=== PATIENT | female | born 1965 | race Hispanic/Latino ===

== ENCOUNTER 2020-05-16 18:35 | Emergency (ER) | payer MEDICAID, SELFPAY ==
--- NOTE | ~2020-05-16 | CT_ITS ---
EXAMINATION: CT cervical spine wo con DATE: 05/16/2020 21:40 INDICATION: Neck pain after fall TECHNIQUE: Computed tomography (CT) of the cervical spine was performed without intravenous contrast. The dose-length product was 433 mGy-cm. Automated exposure control and iterative reconstruction tech [employer] were employed. COMPARISON: None FINDINGS: Normal cervical alignment. Vertebral body and disc heights are preserved. No acute fracture , subluxation or dislocation. Odontoid process within normal limits. Lung apices are unremarkable. Cr aniovertebral junction is normal. No paraspinal soft tissue abnormality. IMPRESSION: 1. No acute abnormality of the cervical spine. Reviewed, dictated and finalized at location A.
--- NOTE | ~2020-05-16 | CT_ITS ---
EXAMINATION: CT BRAIN W/O DATE: 05/16/2020 21:40 INDICATION: Head injury. Loss of consciousness. TECHNIQUE: Computed tomography (CT) of the head was performed without intravenous contrast. The dose- length product was 605.33 mGy-cm. The mA was adjusted according to patient size. Iterative reconstruc tion technique was employed. COMPARISON: No prior studies for comparison. FINDINGS: Normal brain parenchymal volume for age. Normal casarez-white differentiation. No acute intrac ranial hemorrhage, infarction, mass or mass effect. No ventriculomegaly or midline shift. Midline sagittal images demonstrate a normal corpus callosum, c raniovertebral junction and sella turcica. Basilar cisterns are patent. There is right parietal scalp swelling. Paranasal sinuses and mastoids are pneumatized. No depressed skull fractures. IMPRESSION: 1. No acute intracranial abnormality. Reviewed, dictated and finalized at location A.
--- NOTE | ~2020-05-16 | XR_ITS ---
XR hip BI 2V w AP pelvis 05/16/2020 21:46 INDICATION: Hip pain after fall PROCEDURE: AP pelvis and 2 views each hip COMPARISON: No prior studies for comparison. FINDINGS: Fracture, dislocation or subluxation is not identified. Pelvic rings are intact. The soft t issues appear within normal limits. No foreign bodies are identified. There is a right-sided pseudoa rticulation at L5-S1. IMPRESSION: 1: NO ACUTE BONE OR JOINT ABNORMALITY IDENTIFIED. Reviewed, dictated and finalized at location A.
[2020-05-16 18:37] VITALS: BP 138/67; PULSE 70; RESP 16; TEMP 36.9; O2SAT 99
[2020-05-16 20:50] VITALS: BP 135/76; PULSE 62; RESP 18; TEMP 36.9; O2SAT 100
--- NOTE | 2020-05-16 21:14 | ED.FALL ---
HPI - Fall General Chief Complaint: Fall Stated Complaint: fall/hi Time Seen by Provider: 05/16/20 20:52 Source: patient Mode of arrival: ambulatory Limitations: language barrier (daughter at bedside who is translating) History of Present Illness HPI Narrative: Patient presents to the ER after a fall earlier today. Reports she was mopping and slipped and fell backwards. Reports she hit the back of her head. Is unsure if she lost consciousness. Reports her vision did go black. Reports since the fall she has had neck pain and bilateral hip pain. Denies vision changes, vomiting, numbness, or weakness. Related Data Home Medications Medication Instructions Recorded Confirmed simvastatin mg DAILY 05/16/20 Allergies Allergy/AdvReac Type Severity Reaction Status Date / Time No Known Allergies Allergy Verified 05/16/20 18:41 Review of Systems Review of Systems: Narrative: CONSTITUTIONAL: Denies fever EYES: Denies visual changes GASTROINTESTINAL: Denies vomiting MUSCULOSKELETAL: Reports joint pain, and myalgia. NEUROLOGIC: Denies numbness, or weakness. All systems reviewed & are unremarkable except as noted in HPI and below PMFSH Past Medical History Medical History (Updated 05/16/20 @ 21:59 by Capri Reynaga PA-C) History of hyperlipidemia Social History Social History (Updated 05/16/20 @ 21:18 by Capri Reynaga PA-C) Smoking status: Never smoker Gender identity (if verbalized by the patient): Female Exam Narrative: Exam Narrative: GENERAL: Well-appearing, well-nourished, and in no acute distress. HEAD: Normocephalic, atraumatic. EYES: PERRLA and EOMI. ENT: Nares clear, no rhinorrhea or epistaxis. Mucous membranes moist. Oropharynx without tonsillar hypertrophy exudate or other lesions. Bilateral TMs pearly casarez non-bulging NECK: Supple. No adenopathy or masses. Tender to palpation of midline cervical spine CHEST: Clear to auscultation. No respiratory distress. No wheezes rales or rhonchi HEART: Regular rate and rhythm. No murmur heard. Normal peripheral pulses. BACK: Nontender outpatient of midline thoracic or lumbar spine EXTREMITIES: Normal range of motion. No edema. Strength equal in bilateral upper extremities (5/5) SKIN: Warm, dry, no rash. NEURO: No focal deficits. Alert and oriented x3. Cranial nerves II through XII grossly intact PSYCH: Normal mood and affect Course Vital Signs Vital signs: Vital Signs Temperature 98.4 F 05/16/20 18:37 Pulse Rate 70 05/16/20 18:37 Respiratory Rate 16 05/16/20 18:37 Blood Pressure 138/67 05/16/20 18:37 Pulse Oximetry 99 05/16/20 18:37 Temperature 98.4 F 05/16/20 20:50 Pulse Rate 62 05/16/20 20:50 Respiratory Rate 18 05/16/20 20:50 Blood Pressure 135/76 05/16/20 20:50 Pulse Oximetry 100 05/16/20 20:50 MDM - Fall MDM Narrative Medical decision making narrative: Patient presents to the emergency department after a fall today with head injury, neck pain, and hip pain. Patient is neurologically intact. CT scans of the brain and cervical spine are without acute findings. XR of the hips is also without acute findings. Patient and family were updated on case findings. Patient is stable and felt appropriate for further outpatient evaluation. She was given warnings to return to the ER Imaging Data Radiologist's impression: ITS Impressions Head CT 05/16/20 21:43 IMPRESSION: 1. No acute intracranial abnormality. Cervical Spine CT 05/16/20 21:45 IMPRESSION: 1. No acute abnormality of the cervical spine. Hip/Pelvis X-Ray 05/16/20 21:48 IMPRESSION: 1: NO ACUTE BONE OR JOINT ABNORMALITY IDENTIFIED. Critical Care Time Critical Care Time Critical Care Time: No Discharge Plan Discharge Clinical Impression: Fall from ground level, Acute neck pain Head injury Qualifiers: Encounter type: initial encounter Qualified Code(s): S09.90XA - Unspecified injury of head, initial encounter
--- NOTE | 2020-05-16 21:15 | PC.NURSE ---
Report given to LOIDA Blair.
[2020-05-16 22:27] VITALS: BP 129/88; PULSE 68; RESP 18; O2SAT 99
== END 2020-05-16 22:28 | disposition home or self-care (01) ==
PROVIDERS: Emergency Provider Emergency Medicine; PCP Registered Nurse
DX: S09.90XA Unspecified injury of head, initial encounter (principal); M54.2 Cervicalgia; E78.5 Hyperlipidemia, unspecified; W01.0XXA Fall on same level from slipping, tripping and stumbling without subsequent striking against object, initial encounter
CPT/HCPCS: 70450; 72125; 73521; 99284

== ENCOUNTER 2021-03-04 16:39 | Outpatient (CLI) | payer OTHER, SELFPAY ==
--- NOTE | ~2021-03-04 | MM_ITS ---
CORRECTED REPORT ORDERING PROVIDER CHANGED TO EFRAÍN MILLER NP. 03/05/2021 sef EXAMINATION: MM screening karlie BI w lillie HISTORY: Screening mammogram TECHNIQUE: Craniocaudal and mediolateral oblique 3-D tomosynthesis images were obtained and synthetic 2-D images were generated. CAD analysis was submitted and interpreted. COMPARISON: No prior mammogram is available for comparison at this institution. BREAST PARENCHYMAL COMPOSITION: The breasts are heterogeneously dense, which may obscure small masses. FINDINGS: RIGHT BREAST: There is no evidence of suspicious mass, calcification, or architectural distortion to suggest malignancy. LEFT BREAST: There are indeterminate calcifications in the upper outer quadrant of the breast and a possible subareolar mass. IMPRESSION: 1. Left breast findings as described above which may represent the patient's baseline however no comparison is currently available. 2. Comparison with prior mammograms is necessary. BI-RADS Category 0: Incomplete: Needs comparison with prior mammograms. Reviewed, dictated and finalized at location A. MTDD IMPRESSION: 1. Left breast findings as described above which may represent the patient's ba seline however no comparison is currently available. 2. Comparison with prior mammograms is necessary. BI-RADS Category 0: Incomplete: Needs comparison with prior mammograms.
== END 2021-03-04 16:40 | disposition home or self-care (01) ==
PROVIDERS: PCP Registered Nurse
DX: Z12.31 Encounter for screening mammogram for malignant neoplasm of breast (principal); R92.8 Other abnormal and inconclusive findings on diagnostic imaging of breast
CPT/HCPCS: 77063; 77067

== ENCOUNTER 2022-03-18 16:32 | Outpatient (CLI) | payer OTHER, SELFPAY ==
--- NOTE | ~2022-03-18 | MM_ITS ---
EXAMINATION: MM screening karlie BI w lillie HISTORY: Screening TECHNIQUE: Craniocaudal and mediolateral oblique 3-D tomosynthesis images were obtained and synthetic 2-D images were generated. CAD analysis was submitted and interpreted. COMPARISON: Comparison to multiple prior studies sequentially, with oldest reviewed study dated 05/2017. BREAST PARENCHYMAL COMPOSITION: The breasts are heterogenously dense, which may obscure small masses FINDINGS: There is no evidence of suspicious mass, calcification, or architectural distortion to sugg est malignancy in either breast. There has been no suspicious interval change. IMPRESSION: 1. No mammographic evidence of malignancy. 2. Recommend routine screening mammography in one year. BI-RADS Category 1: Negative Reviewed, dictated and finalized at location A.
== END 2022-03-18 16:33 | disposition home or self-care (01) ==
PROVIDERS: PCP Physician Assistant; Visit Provider Physician Assistant
DX: Z12.31 Encounter for screening mammogram for malignant neoplasm of breast (principal)
CPT/HCPCS: 77063; 77067

== ENCOUNTER 2022-10-01 07:50 | Outpatient (CLI) | payer OTHER, SELFPAY ==
--- NOTE | ~2022-10-01 | US_ITS ---
EXAMINATION: US right upper quadrant DATE: 10/01/2022 08:08 INDICATION: Right upper quadrant pain TECHNIQUE: Multiple grayscale and Doppler ultrasound images of the abdomen were obtained. COMPARISON: None available FINDINGS: Bowel gas obscures visualization of the pancreas. The visualized portions of the pancreas a re unremarkable. The liver is normal with normal echogenicity and echotexture. No surface nodularity. Normal hepatopetal flow in the main portal vein. The gallbladder is normal with no abnormal wall thi ckening, pericholecystic fluid or stones. The normal common bile duct measures 6 mm. There was no son ographic Burger sign. IMPRESSION: 1. Normal sonographic study of the gallbladder. Reviewed, dictated and finalized at location B. R TESTER
== END 2022-10-01 07:51 | disposition home or self-care (01) ==
PROVIDERS: PCP Physician Assistant; Visit Provider Physician Assistant
DX: R10.11 Right upper quadrant pain (principal)
CPT/HCPCS: 76705

== ENCOUNTER 2023-01-14 00:40 | Day surgery (SDC) | payer OTHER, SELFPAY ==
[2023-01-07 10:39] VITALS: BMI 31.0
--- NOTE | 2023-01-13 09:46 | WPDANESEPPF ---
Anes - Initial Pre Proc Eval Procedure: Operation Date: 01/14/23 10:45 Proposed Procedures p Esophagogastroduodenoscopy - Carlos Huntley MD Date/Time: 01/13/23 09:46 Surgeon: Carlos Huntley MD Pre Op Diagnosis: GERD, epigastric pain Patient Data Age: 57 Gender: F Height: 1.63 m Weight: 82 kg Allergies Allergy/AdvReac Type Severity Reaction Status Date / Time No Known Allergies Allergy Verified 01/07/23 10:40 Home Medications Medication Instructions Recorded Confirmed Type atorvastatin 10 mg tablet 10 mg PO DAILY 12/17/22 01/07/23 History cetirizine 5 mg tablet 5 mg PO DAILY PRN Allergy Symptoms 12/17/22 01/07/23 History omeprazole 40 mg capsule,delayed 40 mg PO DAILY #30 caps 12/17/22 01/07/23 Rx release Patient hx anesthesia problems: none Family hx anesthesia problems: none Results Review: All pre-operative results and documents have been reviewed as part of the pre-operative evaluation. COUNTS INCLUDE 234 BEDS AT THE [facility] Past Medical History Medical History (Updated 01/13/23 @ 09:46 by Pascual Youngblood DO) Colon cancer screening Epigastric pain GERD (gastroesophageal reflux disease) History of hyperlipidemia Obesity Ulcer Social History Social History Smoking status: Never smoker Substance use: never Substance use type: does not use Living arrangements: with family Gender identity (if verbalized by the patient): Female Spiritual care concerns: No Anes - Eval Final PreProcedure Day of Procedure 01/13/23 09:46 Patient weight: obese Heart: regular rate and rhythm Lungs: clear to auscultation Airway: Mallampati scale class II Neurological: alert and oriented Last oral intake: >/= 8 hours ASA classification: II Emergent: no Anesthetic plan: proceed Anesthesia type and monitoring: general GIVS and standard monitoring Results Review: All pre-operative results and documents have been reviewed as part of the pre-operative evaluation. Informed Consent: The patient's anesthetic plan and its attendant risks and benefits were discussed with the patient/family/POA. Questions were solicited and answers provided to the satisfaction of the patient/family/POA.
[2023-01-14 09:44] VITALS: BP 93/67; PULSE 62; RESP 18; TEMP 36.1; O2SAT 99; BMI 30.6
[2023-01-14] MEDS: LACTATED RINGERS 1,000 ML 150 ML IV CONT (09:53)
--- NOTE | 2023-01-14 09:58 | WPDHPUPDATE1 ---
History and Physical Update Update Date/Time: 01/14/23 09:58 History and Physical has been reviewed, including an updated exam of the patient. There are NO changes in the patient's condition. Risks, benefits, and alternatives have been discussed and questions answered. Patient agrees to proceed with procedure.
[2023-01-14 10:43] VITALS: BP 93/62; PULSE 54; RESP 15; O2SAT 98
[2023-01-14 10:53] VITALS: BP 94/62; PULSE 65; RESP 21; O2SAT 99
[2023-01-14 11:03] VITALS: BP 103/69; PULSE 62; RESP 19; O2SAT 100
== END 2023-01-14 11:15 | disposition home or self-care (01) ==
PROVIDERS: PCP Physician Assistant; Visit Provider Internal Medicine Gastroenterology
PROC: 0DJ08ZZ Inspection of Upper Intestinal Tract, Via Natural or Artificial Opening Endoscopic (ICD-10-PCS; CPT 43235; principal; 2023-01-14 10:45)
DX: R10.13 Epigastric pain (principal); K21.9 Gastro-esophageal reflux disease without esophagitis; E78.5 Hyperlipidemia, unspecified; E66.9 Obesity, unspecified; Z68.30 Body mass index [BMI] 30.0-30.9, adult
CPT/HCPCS: 43239; 87081; J2001; J2704; J7120

== ENCOUNTER 2023-01-24 07:27 | Outpatient (CLI) | payer OTHER, SELFPAY ==
--- NOTE | ~2023-01-24 | NM_ITS ---
EXAMINATION: NM hepatobiliary wo pharm DATE: 01/24/2023 09:57 INDICATION: Epigastric abdominal pain. COMPARISON: Ultrasound 10/01/2022 TECHNIQUE: 5.2 mCi Tc-99m mebrofenin (Choletec) was administered intravenously. Scintigraphic images of the abdomen were obtained for one hour. Then, the patient drank 8 oz Ensure, and imaging was cont inued for 60 minutes. FINDINGS: There is normal clearance of radiotracer from the blood pool. There is homogeneous tracer u ptake by the liver. Activity progresses to the bowel and gallbladder. Gallbladder ejection fraction (GBEF) was 76%. Note that with this technique, normal GBEF >= 33%. IMPRESSION: 1. Normal hepatobiliary scintigraphy. Reviewed, dictated and finalized at location A.
== END 2023-01-24 07:28 | disposition home or self-care (01) ==
PROVIDERS: PCP Physician Assistant; Visit Provider Internal Medicine Gastroenterology
DX: R10.13 Epigastric pain (principal)
CPT/HCPCS: 78226; A9537

== ENCOUNTER 2023-02-09 07:47 | Outpatient (CLI) | payer OTHER, SELFPAY ==
--- NOTE | ~2023-02-09 | CT_ITS ---
EXAMINATION: CT abdomen pelvis w con DATE: 02/09/2023 08:13 INDICATION: Epigastric pain and right flank pain. TECHNIQUE: Computed tomography (CT) of the abdomen and pelvis was performed with 100 mL Omnipaque-350 intravenous contrast. Automated exposure control and iterative reconstruction technique were employe d. The dose-length product was 517.51 mGy-cm. COMPARISON: None FINDINGS: Mosaic attenuation in the dependent aspect of the visualized lungs less likely related atelectasis. N o focal 7 mm groundglass nodule in the right lower lobe. Heart size is normal. No pericardial or pleu ral effusion. 1.2 cm right hepatic cyst. Gallbladder, spleen, pancreas, bilateral adrenal glands and left kidney are normal. 3 mm cyst in the right kidney. 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 Bowels i ncluding appendix are normal. Bladder is normal. The endometrial complex appears thickened measuring approximately 8 mm in thickness. Bilateral adnexa are unremarkable. No free intraperitoneal gas or fl uid. No pathologically enlarged abdominal or pelvic lymphadenopathy. L5 is partially sacralized on th e right. IMPRESSION: 1. No acute intra-abdominal/pelvic process. 2. Endometrial complex measures approximately 8 mm which be thickened for postmenopausal state. Corre late for either hormone replacement therapy or abnormal uterine bleeding. Could consider pelvic ultra sound for further evaluation as clinically indicated. Reviewed, dictated and finalized at location A. IMPRESSION: 1. No acute intra-abdominal/pelvic process. 2. Endometrial complex measures approximately 8 mm which be thickened for postm enopausal state. Correlate for either hormone replacement therapy or abnormal u terine bleeding. Could consider pelvic ultrasound for further evaluation as cli nically indicated.
== END 2023-02-09 07:48 | disposition home or self-care (01) ==
LOC: ANHIMG 07:50
PROVIDERS: PCP Physician Assistant; Visit Provider Nurse Practitioner
DX: R10.13 Epigastric pain (principal)
CPT/HCPCS: 74177; Q9967

== ENCOUNTER 2023-02-25 09:38 | Outpatient (CLI) | payer OTHER, SELFPAY ==
--- NOTE | ~2023-02-25 | DEXA_ITS ---
Bone Density Report Name: TIFFANY VALENTE Age: 57 Sex: Female Ethnicity: White Date of : 1965 Indication: postmenopausal; screening for osteoporosis; height loss; Referring Provider: PAULINE DAIGLE Study: Bone densitometry was performed. Exam Date: February 25, 2023 Accession number: [id number] Bone Density: Region BMD T-score Z-score Classification AP Spine(L1-L4) 0.948 -0.9 0.3 Normal Femoral Neck (Left) 0.731 -1.1 0.1 Osteopenia Total Hip (Left) 0.864 -0.6 0.2 Normal Femoral Neck (Right) 0.693 -1.4 -0.2 Osteopenia Total Hip (Right) 0.851 -0.7 0.0 Normal Total Hip Mean 0.857 -0.7 0.1 Normal World Health Organization criteria for BMD impression classify patients as: Normal (T-score at or above -1.0), Osteopenia (T-score between -1.0 and -2.5), or Osteoporosis (T-score at or below -2.5). 10-year Fracture Risk(1): Major Osteoporotic Fracture 6.9% Hip Fracture 0.5% Reported Risk Factors: [place] (), Neck BMD=0.693, BMI=30.0 (1) FRAX(R) Version 3.08. Fracture probability calculated for an untreated patient. Fracture probability may be lower if the patient has received treatment. Clinical Information Provided by Patient: Patient maximum height was 65 Menopause Age: 50 No regular weight bearing exercise Drinks caffeinated beverages Onset of menses at age 15 Number of children 2 Impression: The patient has low bone mass, based on the Right Femoral Neck T-score. The patient has an estimated ten-year risk of hip fracture of 0.5% and an estimated ten-year risk of major fracture of 6.9%, based on the WHO FRAX algorithm. Discussion: BONE DENSITY IS LOW AT ONE OR MORE SKELETAL SITES. This patient's lowest T-score is low at one or more skeletal sites. It meets the World Health Organization's (WHO) criteria for ?low bone mass? (T-score between -1.0 and -2.5). The patient's 10-year risk of fracture as calculated by FRAX is less than the threshold where pharmacological therapy is recommended by the National Osteoporosis Foundation (NOF). However, all treatment decisions require clinical judgment and consideration of individual patient factors, including patient preferences, comorbidities, previous drug use, risk factors not captured in the FRAX model (e.g., frailty, falls, vitamin D deficiency, increased bone turnover, interval significant decline in bone density) and possible under or overestimation of fracture risk by FRAX. The patient should follow a healthful lifestyle (good nutrition with adequate calcium and vitamin D, and appropriate weight-bearing exercise). Follow-Up: Consider repeating this study in 2 to 3 years to reassess this patient's status, or sooner if there is some new clinical indication. Reported by: EDU on 02/25/2023 10:05:00 AM.
== END 2023-02-25 09:39 | disposition home or self-care (01) ==
PROVIDERS: PCP Physician Assistant; Visit Provider Obstetrics & Gynecology Gynecology
DX: M85.9 Disorder of bone density and structure, unspecified (principal); Z78.0 Asymptomatic menopausal state
CPT/HCPCS: 77080

== ENCOUNTER 2023-03-14 16:46 | Outpatient (CLI) | payer OTHER, SELFPAY ==
--- NOTE | ~2023-03-14 | US_ITS ---
EXAMINATION: US transvaginal DATE: 03/14/2023 17:25 INDICATION: ENDOMETRIUM THICKENED TECHNIQUE: Multiple transabdominal and endovaginal sonographic images of the pelvis were obtained. COMPARISON: CT abdomen pelvis 02/09/2023. FINDINGS: Uterus: 6.9 x 3.5 x 4.3 cm. Endometrial complex measures 10 mm. Right Ovary: Not visualized. No adnexal mass detected. Left Ovary: 2.1 x 1.3 x 1.5 cm. Vascular flow is present. No adnexal mass detected. There is no free fluid in the pelvis. IMPRESSION: Endometrial thickening, consider gynecology referral and endometrial sampling. Right ovary not visualized. Reviewed, dictated and finalized at location K.
== END 2023-03-14 16:47 | disposition home or self-care (01) ==
PROVIDERS: PCP Physician Assistant; Visit Provider Physician Assistant
DX: R93.89 Abnormal findings on diagnostic imaging of other specified body structures (principal)
CPT/HCPCS: 76830

== ENCOUNTER 2023-05-02 01:09 | Day surgery (SDC) | payer OTHER, SELFPAY ==
[2023-04-26 08:20] VITALS: BMI 30.3
--- NOTE | 2023-04-26 08:31 | PC.NURSE ---
Report to the Outpatient Waiting Room, entrance under the green pavilion located off [facility], at time __7:45AM on date __05/02/23 . Planned Procedure Time: _9:45AM . Time changes happen often and if your time is changed the preop area will call you the afternoon before. - You and your visitor will be asked to self-screen and do not enter if you have any COVID symptoms. - A mask is optional within the hospital at this time. Patients may have clear liquids (water, carbonated beverages, clear teas, apple juice) until 3 hours prior to surgery with a maximum of 20 ounces. - No food from midnight until time of surgery Take the following medications with a SIP of water the morning of surgery: __NONE DO NOT STOP ANY OF YOUR OTHER PRESCRIPTION MEDICATIONS PRIOR TO SURGERY ?EXCEPT THE FOLLOWING Medications to discontinue per physician ___HOLD ALL VITAMINS/SUPPLEMENTS 3 DAYS PRE-OP Date to take last dose 04/28/23 Please no make-up, nail hungarian, hairspray, perfume, deodorant, or body powder the day of surgery. No jewelry (including any body piercings) or valuables the day of surgery, leave them at home. Please take a shower or bath the night before, or the morning of, surgery with an antibacterial soap. Wear comfortable, loose fitting clothing. Children are encouraged to wear pajamas. - Jewelry must be removed prior to entering the operating room. Rings and piercings that are not removed may be cut off. - The hospital will not accept responsibility for valuables. - Please leave all valuables, including medications, at home the day of surgery. If you are going home after surgery, a licensed wheelchair driver must drive you home. - NO public transportation without another adult if you receive anesthesia. - We recommend that an adult stay with you for 24 hours following discharge. - We also recommend that you do not drive, make important decision, drink alcoholic beverages, or take any drugs that were not prescribed by your health care provider for at least 24 hours after your discharge time. Follow any additional instructions given to you from your surgeon. If you or anyone in your household have experienced Covid symptoms in the past week, please notify your surgeon or the nurse liaison at the phone number below for possible testing. Telephone instructions given to __PATIENT & DAUGHTER-ALICIA and asked if any additional questions and then verbalized understanding. Patient advised to call surgeon office or pre surgery nurse liaison [phone] if any additional questions.
--- NOTE | 2023-05-02 07:59 | WPDHPUPDATE1 ---
History and Physical Update Update Date/Time: 05/02/23 07:59 History and Physical has been reviewed, including an updated exam of the patient. There are NO changes in the patient's condition. Risks, benefits, and alternatives have been discussed and questions answered. Patient agrees to proceed with procedure.
--- NOTE | 2023-05-02 07:59 | PM.HPGS ---
History of Present Illness History of Present Illness Consent: Risks, benefits, and alternatives have been discussed and questions answered. Patient agrees to proceed with procedure. Chief complaint: Thickened Endometrium Lining Narrative: Keely Novoa is a 57 year old female with an episode of postmenopausal bleeding. Pelvic ultrasound was performed and the lining was thickened at 10mm. It was recommended to proceed with D&C hysteroscopy. Exam did show a cervical polyp that was removed and showed evidence of focal atypia. Pap smear showed no HPV and was normal. The risks of infection, bleeding perforation, and possible pathology were reviewed. Patient voices understanding and agrees to proceed. Review of Systems Review of Systems: not repeated day of surgery; patient states no changes in status PMFSH Past Medical History Medical History (Updated 05/02/23 @ 08:03 by Sil Hatch MD) GERD (gastroesophageal reflux disease) History of hyperlipidemia (normal spontaneous vaginal delivery) x2 Obesity BMI of 31 Opacity of lung on imaging study Ulcer Social History Social History (Updated 03/09/23 @ 13:32 by Jessica Dunbar Melva) Smoking status: Never smoker Alcohol intake: never Substance use: never Substance use type: does not use Living arrangements: with family Additional living arrangements comments: HUSB, SON & HIS GIRLFRIEND Occupation/Education: unemployed Gender identity (if verbalized by the patient): Female Spiritual care concerns: No Meds Home Medications and Allergies Home Medications Medication Instructions Recorded Confirmed Type omeprazole 40 mg capsule,delayed 40 mg PO DAILY #30 caps 02/01/23 04/26/23 Rx release fluticasone propionate 50 2 spray intranasal DAILY 03/09/23 04/26/23 History mcg/actuation nasal spray,suspension atorvastatin 40 mg tablet 40 mg PO DAILY 04/26/23 04/26/23 History calcium 600 mg capsule 600 mg PO DAILY 04/26/23 04/26/23 History cyanocobalamin (vitamin B-12) 1,000 mcg PO DAILY 04/26/23 04/26/23 History 1,000 mcg capsule magnesium 500 mg tablet 15 mg PO DAILY 04/26/23 04/26/23 History omega 8-vnq-qmg-fish oil 900 1 cap PO DAILY 04/26/23 04/26/23 History mg-1,400 mg capsule,delayed release vitamin A 2,400 mcg capsule 2,400 mcg PO DAILY 04/26/23 04/26/23 History Allergies Allergy/AdvReac Type Severity Reaction Status Date / Time ethinyl estradiol Allergy Mild Sneezing Verified 04/26/23 08:12 [From Seasonale ()] levonorgestrel Allergy Mild Sneezing Verified 04/26/23 08:12 [From Seasonale ()] Exam Const: General: healthy appearing and alert Orientation/consciousness: patient oriented x3 Resp: Effort & Inspection: normal respiratory effort GI: GI Palp: Yes Soft to palpation, No Tenderness to palpation present (GI) and No Palpable mass present : External Female Exam: normal external appearance Speculum Exam - Vagina: normal appearance of the vagina and normal vaginal discharge Speculum Exam - Cervix: normal appearance of the cervix Bimanual exam- vagina & uterus: uterine size normal and consistency normal Bimanual Exam- Adnexa, other: normal adnexae and No adnexal tenderness Neuro: General: patient oriented x3 Assessment and Plan Assessment and plan (1) Post-menopausal bleeding: Code(s): N95.0 - Postmenopausal bleeding Status: Acute Assessment and Plan: plan to proceed with D&C hysteroscopy
[2023-05-02] MEDS: ACETAMINOPHEN 500 MG TABLET 1000 MG PO (09:00)
[2023-05-02] MEDS: LACTATED RINGERS 1,000 ML 30 ML IV CONT (09:00)
[2023-05-02 09:03] VITALS: BP 103/68; PULSE 59; RESP 16; TEMP 36.3; O2SAT 100
--- NOTE | 2023-05-02 09:43 | WPDANESEPPF ---
Anes - Initial Pre Proc Eval Procedure: Operation Date: 05/02/23 09:45 Proposed Procedures p Hysteroscopy Dilation and Curettage - Sil Hatch MD Date/Time: 05/02/23 09:43 Surgeon: Sil Hatch MD Pre Op Diagnosis: Thickened Endometrium Lining Patient Data Age: 57 Gender: F Height: 1.63 m Weight: 77.5 kg Last Vital Signs Temp 36.3 C L 05/02/23 09:03 Pulse 59 L 05/02/23 09:03 Resp 16 05/02/23 09:03 BP 103/68 05/02/23 09:03 Pulse Ox 100 05/02/23 09:03 Allergies Allergy/AdvReac Type Severity Reaction Status Date / Time ethinyl estradiol Allergy Mild Sneezing Verified 05/02/23 09:02 [From Seasonale ()] levonorgestrel Allergy Mild Sneezing Verified 05/02/23 09:02 [From Seasonale ()] Home Medications Medication Instructions Recorded Confirmed Type omeprazole 40 mg capsule,delayed 40 mg PO DAILY #30 caps 02/01/23 04/26/23 Rx release fluticasone propionate 50 2 spray intranasal DAILY 03/09/23 04/26/23 History mcg/actuation nasal spray,suspension atorvastatin 40 mg tablet 40 mg PO DAILY 04/26/23 04/26/23 History calcium 600 mg capsule 600 mg PO DAILY 04/26/23 04/26/23 History cyanocobalamin (vitamin B-12) 1,000 mcg PO DAILY 04/26/23 04/26/23 History 1,000 mcg capsule magnesium 500 mg tablet 15 mg PO DAILY 04/26/23 04/26/23 History omega 0-aoo-nhl-fish oil 900 1 cap PO DAILY 04/26/23 04/26/23 History mg-1,400 mg capsule,delayed release vitamin A 2,400 mcg capsule 2,400 mcg PO DAILY 04/26/23 04/26/23 History Patient hx anesthesia problems: none Family hx anesthesia problems: none Results Review: All pre-operative results and documents have been reviewed as part of the pre-operative evaluation. [facility], LAT[facility] Past Medical History Medical History GERD (gastroesophageal reflux disease) History of hyperlipidemia (normal spontaneous vaginal delivery) x2 Obesity BMI of 31 Opacity of lung on imaging study Ulcer Social History Social History Smoking status: Never smoker Alcohol intake: never Substance use: never Substance use type: does not use Living arrangements: with family Additional living arrangements comments: HUSB, SON & HIS GIRLFRIEND Occupation/Education: unemployed Gender identity (if verbalized by the patient): Female Spiritual care concerns: No Anes - Eval Final PreProcedure Day of Procedure 05/02/23 09:43 Patient weight: overweight Heart: regular rate and rhythm Lungs: clear to auscultation Airway: Mallampati scale class II Neurological: alert and oriented Last oral intake: >/= 8 hours ASA classification: II Emergent: no Anesthetic plan: proceed Anesthesia type and monitoring: general GIVS and standard monitoring Results Review: All pre-operative results and documents have been reviewed as part of the pre-operative evaluation. Informed Consent: The patient's anesthetic plan and its attendant risks and benefits were discussed with the patient/family/POA. Questions were solicited and answers provided to the satisfaction of the patient/family/POA.
--- NOTE | 2023-05-02 10:44 | P.OP_ITS ---
Procedure Note - Detailed Date of Procedure 05/02/23 Pre-op Diagnosis postmenopausal bleeding Thickened Endometrium Lining Post-op Diagnosis Same Procedure Performed D&C hysteroscopy with resection of polyps Surgeon Sil Hatch MD Anesthesia MAC Findings the uterus sounds to 10cm; large polyp filling the cavity arising from the mid posterior wall; small polyp at the fundus; atrophic endometrium Description of Procedure The patient is taken to the operating room and placed under anesthesia in the dorsal lithotomy position. She was prepped and draped in usual sterile fashion. [place] speculum was placed in the vagina and the cervix grasped on the anterior lip with a tenaculum. There is internal cervical stenosis. The small dilators are used and able to enter the cavity. The cervix was dilated to a 5 Hegar. The uterus is sounded to 10cm. The diagnostic hysteroscope was placed with the above-stated findings the Aveeta resection device is opened and placed. Under direct visualization, the polyps are removed in their entirety. The hysteroscope was then removed and the OO sharp curette used to curette the endometrium until a good uterine cry was noted in all areas. All instruments were then removed. Sponge, needle, and instrument counts are correct per the OR staff. The patient was awakened from anesthesia and taken to recovery in stable condition. Estimated Blood Loss 5 Drains No Packing No Pathology Yes ( Endometrial shavings and curettings) Complications No immediate complications Condition Stable Disposition PACU
[2023-05-02 10:45] VITALS: BP 102/61; PULSE 65; RESP 16; O2SAT 93
[2023-05-02 11:15] VITALS: BP 99/61; PULSE 46; RESP 12; O2SAT 97
[2023-05-02 11:45] VITALS: BP 106/59; PULSE 46; RESP 12; O2SAT 99
[2023-05-02 12:00] VITALS: BP 92/61; PULSE 49; RESP 16; O2SAT 100
[2023-05-02 12:20] VITALS: BP 104/60; PULSE 48; RESP 16
== END 2023-05-02 12:27 | disposition home or self-care (01) ==
PROVIDERS: PCP Physician Assistant; Visit Provider Obstetrics & Gynecology Gynecology
PROC: 0U5B8ZZ Destruction of Endometrium, Via Natural or Artificial Opening Endoscopic (ICD-10-PCS; CPT 58563; principal; 2023-05-02 09:45)
DX: N95.0 Postmenopausal bleeding (principal); N84.0 Polyp of corpus uteri; K21.9 Gastro-esophageal reflux disease without esophagitis; E78.5 Hyperlipidemia, unspecified
CPT/HCPCS: 58558; 88305; A9270; J1100; J2250; J2405; J2704; J3010; J7120

== ENCOUNTER 2023-05-10 20:33 | Emergency (ER) | payer OTHER, SELFPAY ==
--- NOTE | ~2023-05-10 | XR_ITS ---
EXAMINATION: XR chest 2V DATE: 05/11/2023 04:04 INDICATION: Shortness of breath. Epigastric abdominal pain. TECHNIQUE: Frontal and lateral views of the chest were obtained. COMPARISON: CT abdomen and pelvis 05/11/2023 FINDINGS: There is no pneumonia, pleural effusion, or pneumothorax. The heart size is normal. There i s mild chronic anterior wedging of a midthoracic vertebral body. IMPRESSION: 1. No acute cardiopulmonary disease. Reviewed, dictated and finalized at location A.
--- NOTE | ~2023-05-10 | CT_ITS ---
EXAMINATION: CT abdomen pelvis w con DATE: 05/11/2023 03:43 INDICATION: Epigastric abdominal pain. TECHNIQUE: Computed tomography (CT) of the abdomen and pelvis was performed with 100 mL Omnipaque 350 intravenous contrast. Automated exposure control and iterative reconstruction technique were employe d. The dose-length product was 681.77 mGy-cm. COMPARISON: CT abdomen and pelvis 02/09/2023 FINDINGS: The visualized portions of the lung bases demonstrate mild atelectasis. No pleural effusion . The heart size is normal. No pericardial effusion. There is a 14 mm cyst in the liver. The gallblad jhon, spleen, pancreas, adrenal glands, and kidneys are normal. There are no dilated loops of bowel. T he appendix is normal. There are no pathologically enlarged lymph nodes. There is no free intraperito jose ramon fluid. There is mild thoracic and lumbar spondylosis. IMPRESSION: 1. No etiology for the patient's symptoms. Reviewed, dictated and finalized at location A.
[2023-05-10 21:02] VITALS: BP 116/63; PULSE 57; RESP 15; TEMP 36.7; O2SAT 100
[2023-05-10 21:17] LABS: Basophils Absolute Auto 0.1 K/mm3 (0.0-0.1); Basophils Percent Auto 0.7 % (0.2-1.2); Eosinophils Absolute Auto 0.1 K/mm3 (0-0.3); Eosinophils Percent Auto 1.1 % (0-4.4); Hematocrit 39.1 % (37.0-47.0); Hemoglobin 12.9 g/dL (12.0-15.0); Immature Granulocyte Absolute 0.02 K/mm3 (0.00-0.031); Immature Granulocyte Percent A 0.2 % (0-0.5); Lymphocytes Absolute Auto 2.57 K/mm3 (0.9-3.2); Lymphocytes Percent Auto 28.2 % (18.3-44.2); Mean Corpuscular Hemoglobin 34.6 pg (26-34); Mean Corpuscular Volume 104.8 fl (80-100); Mean Platelet Volume 9.9 fl (7.4-10.4); Monocytes Absolute Auto 0.8 K/mm3 (0.1-0.6); Monocytes Percent Auto 8.2 % (2.6-8.5); Neutrophils Absolute Auto 5.6 K/mm3 (1.3-6.7); Neutrophils Percent Auto 61.6 % (45.5-73.1); Platelet Count Result 268 k/mm3 (150-375); Red Blood Count 3.73 M/mm3 (4.2-5.4); Red Cell Distribution Width 12.7 % (11.5-14.5); White Blood Count 9.1 K/mm3 (4.5-10.0)
[2023-05-10 21:27] LABS: Alanine Aminotransferase 26 U/L (6-35); Albumin Level 4.1 g/dL (3.5-5.1); Alkaline Phosphatase 56 U/L (38-126); Anion Gap 4 mmol/L (8-16); Aspartate Amino Transferase 24 U/L (14-36); Bilirubin,Total 0.5 mg/dL (0.2-1.3); Blood Urea Nitrogen 15 mg/dL (7-17); Calcium 9.1 mg/dL (8.4-10.2); Carbon Dioxide 29 mmol/L (22-30); Chloride 103 mmol/L (98-107); Estimated CRCL calculation 69 ml/min; Estimated Glomerular Filt Rate > 60; Glucose 86 mg/dL (65-110); Lipase 158 U/L (23-300); Potassium 4.2 mmol/L (3.4-5.0); Sodium 136 mmol/L (137-145)
[2023-05-10 21:28] LABS: Appearance Urine Clear (Clear); Bacteria Urine None Seen /hpf; Bilirubin Urine Negative (Negative); Blood Urine Negative (Negative); Color Urine Yellow (Yellow); Glucose Urine UA Negative (Negative); Ketones Urine Negative (Negative); Leukocyte Esterase Ur 2+ LEU/UL (Negative); Nitrate Urine Negative (Negative); Non Pathogenic Casts 0-2; Protein Urine Negative (Negative); RBC Urine 0-2 /hpf (0-2); Specific Grav Ur 1.006 (1.001-1.035); Squamous Epithelial Cell Urine None seen /hpf (Few); Urobilinogen Urine 0.2 mg/dL (<2.0)
[2023-05-10 21:36] LABS: Add Urine Microscopic? YES
[2023-05-11 00:43] VITALS: BP 113/73; PULSE 50; RESP 13; TEMP 36.4; O2SAT 100
--- NOTE | 2023-05-11 00:46 | ECG_ITS ---
Measurements Intervals [place] Rate: 43 P: 19 CT: 137 QRS: 47 QRSD: 102 T: 28 QT: 465 QTc: 398 Interpretive Statements SINUS BRADYCARDIA NONSPECIFIC T-WAVE ABNORMALITY NO PREVIOUS ECG AVAILABLE FOR COMPARISON Electronically Signed On 05-11-2023 11:49:32 CDT by Chelsi Valdovinos M.D.
--- NOTE | 2023-05-11 01:44 | ED.ABDPAIN ---
HPI - Abdominal Pain General Chief Complaint: Abdominal Pain <ROSA M Villa Last Filed: 05/11/23 23:57> Stated Complaint: abd pain/sob/back pain <ROSA M Villa Last Filed: 05/11/23 23:57> Time Seen by Provider: 05/11/23 00:45 <ROSA M Villa Last Filed: 05/11/23 23:57> Source: patient and family <ROSA M Villa Last Filed: 05/11/23 23:57> Mode of arrival: ambulatory <ROSA M Villa Last Filed: 05/11/23 23:57> Limitations: language barrier (stratus raise miner used) <ROSA M iVlla Last Filed: 05/11/23 23:57> History of Present Illness HPI narrative: This is a 57 year old female that presents to the ER for epigastric pain. Ongoing for quite some time. She has seen GI for this and been evaluated with an EGD. She takes a PPI daily. The pain was acutely worse tonight. Associated with nausea. Also reports over the last couple of days she has had some mid back pain. No recent injury or trauma. This pain is worse with movement and relieved with rest. Reports she has been feeling short of breath. Reports her pain in her back is worse with deep breathing. Denies fever, vomiting, diarrhea, or focal numbness or weakness. <ROSA M Villa Last Filed: 05/11/23 23:57> Related Data Home Medications: Home Medications Medication Instructions Recorded Confirmed fluticasone propionate 50 2 spray intranasal DAILY 03/09/23 04/26/23 mcg/actuation nasal spray,suspension atorvastatin 40 mg tablet 40 mg PO DAILY 04/26/23 04/26/23 calcium 600 mg capsule 600 mg PO DAILY 04/26/23 04/26/23 cyanocobalamin (vitamin B-12) 1,000 mcg PO DAILY 04/26/23 04/26/23 1,000 mcg capsule magnesium 500 mg tablet 15 mg PO DAILY 04/26/23 04/26/23 omega 4-hor-iim-fish oil 900 1 cap PO DAILY 04/26/23 04/26/23 mg-1,400 mg capsule,delayed release vitamin A 2,400 mcg capsule 2,400 mcg PO DAILY 04/26/23 04/26/23 <Capri Reynaga PA-C - Last Filed: 05/11/23 23:57> Allergies/Adverse Reactions: Allergies Allergy/AdvReac Type Severity Reaction Status Date / Time ethinyl estradiol Allergy Mild Sneezing Verified 05/02/23 09:02 [From Seasonale ()] levonorgestrel Allergy Mild Sneezing Verified 05/02/23 09:02 [From Seasonale (91)] <Capri Reynaga PA-C - Last Filed: 05/11/23 23:57> Review of Systems Review of Systems: CONSTITUTIONAL: Denies fever CARDIOVASCULAR: Denies chest pain, or edema. RESPIRATORY: Reports dyspnea. GASTROINTESTINAL: Reports abdominal pain, nausea. Denies vomiting, or diarrhea. GENITOURINARY: Denies dysuria MUSCULOSKELETAL: Reports back pain, joint pain, and myalgia. <Capri Reynaga PA-C - Last Filed: 05/11/23 23:57> All systems reviewed & are unremarkable except as noted in HPI and below <Capri Reynaga PA-C - Last Filed: 05/11/23 23:57> [facility] Past Medical History Medical History: Medical History GERD (gastroesophageal reflux disease) History of hyperlipidemia (normal spontaneous vaginal delivery) x2 Obesity BMI of 31 Opacity of lung on imaging study Ulcer <Capri Reynaga PA-C - Last Filed: 05/11/23 23:57> Social History Social History: Social History Smoking status: Never smoker Alcohol intake: never Substance use: never Substance use type: does not use Living arrangements: with family Additional living arrangements comments: HUSB, SON & HIS GIRLFRIEND Occupation/Education: unemployed Gender identity (if verbalized by the patient): Female Sexual Orientation (if Verbalized by the Patient): Straight or Heterosexual Spiritual care concerns: No <Capri Reynaga PA-C - Last Filed: 05/11/23 23:57> Exam Narrative: GENERAL: Well-appearing, well-nourished, and in no acute distress. HEAD: Normocephalic, atraumatic. EYES: EOMI. CH
[2023-05-11] MEDS: MORPHINE SULFATE (*CRX) 4 MG/ML INJ IV PUSH (02:39)
[2023-05-11] MEDS: ONDANSETRON INJ 4 MG/2 ML VIAL IV PUSH (02:39)
[2023-05-11] MEDS: PANTOPRAZOLE SODIUM IV 40 MG VIAL IV PUSH (02:43)
[2023-05-11 02:45] VITALS: BP 114/68; PULSE 58; RESP 19; O2SAT 98
[2023-05-11 03:00] LABS: Partial Thromboplastin Time 29.2 SECONDS (22.3-36.8); Prothrombin Time 13.8 Seconds (11.1-14.7)
[2023-05-11 03:03] LABS: D Dimer 0.31 ug/mL (<0.48)
[2023-05-11 03:11] LABS: Troponin I < 0.012 ng/mL (0.000-0.034)
[2023-05-11 03:16] LABS: Beta HCG Quantitative < 2.39 mIU/ML
[2023-05-11 04:15] VITALS: BP 126/70; PULSE 48; RESP 22; O2SAT 100
[2023-05-11 05:28] VITALS: BP 118/59; PULSE 65; RESP 18; O2SAT 100
[2023-05-11 06:42] VITALS: BP 102/66; PULSE 58; RESP 18; TEMP 36.6; O2SAT 100
== END 2023-05-11 06:43 | disposition home or self-care (01) ==
PROVIDERS: Physician Assistant; Emergency Provider Preventive Medicine Aerospace Medicine; PCP Physician Assistant
DX: R10.13 Epigastric pain (principal); K21.9 Gastro-esophageal reflux disease without esophagitis; E78.5 Hyperlipidemia, unspecified
CPT/HCPCS: 36415; 71046; 74177; 80053; 81001; 83690; 84484; 84702; 85025; 85380; 85610; 85730; 87086; 87088; 93005; 96374; 96375; 99284; C9113; J2270; J2405; Q9967

== ENCOUNTER 2023-05-13 16:15 | Outpatient (CLI) | payer OTHER, SELFPAY ==
--- NOTE | ~2023-05-13 | CT_ITS ---
EXAMINATION: CT diagnostic chest wo con DATE: 05/13/2023 16:43 INDICATION: Right lower lobe pulmonary nodule. Left upper back pain with deep inspiration TECHNIQUE: Computed tomography (CT) of the chest was performed without intravenous contrast. Automate d exposure control and iterative reconstruction technique were employed. Exam dose: 199.08 mGy-cm to snow exam DLP. COMPARISON: 05/11/2023 PA and lateral chest FINDINGS: Nonspecific 7.6 mm groundglass nodular pulmonary density or infiltrate, right lower lobe (series 4 im age 71). No other pulmonary infiltrate or consolidation or mass density is noted. No hilar or mediastinal mass lesion or lymphadenopathy. Normal caliber of the thoracic aorta. Normal heart size. No pericardial or pleural effusion. IMPRESSION: Solitary 7.5 mm groundglass nodular density or infiltrate, right lower lobe; differentia l diagnosis includes focal infectious, inflammatory or malignant process. Short-term CT chest follow-up in 3-6 months is recommended. Reviewed, dictated and finalized at Location A. Reviewed, dictated and finalized at location A. IMPRESSION: Solitary 7.5 mm groundglass nodular density or infiltrate, right l ower lobe; differential diagnosis includes focal infectious, inflammatory or ma lignant process. Short-term CT chest follow-up in 3-6 months is recommended.
== END 2023-05-13 16:16 | disposition home or self-care (01) ==
PROVIDERS: PCP Physician Assistant; Visit Provider Internal Medicine Critical Care Medicine
DX: R91.1 Solitary pulmonary nodule (principal); R91.8 Other nonspecific abnormal finding of lung field
CPT/HCPCS: 71250

== ENCOUNTER 2023-05-18 15:55 | Outpatient (CLI) | payer OTHER, SELFPAY ==
--- NOTE | ~2023-05-18 | MM_ITS ---
EXAMINATION: MM screening karlie BI w lillie HISTORY: Screening mammogram TECHNIQUE: Craniocaudal and mediolateral oblique 3-D tomosynthesis images were obtained and synthetic 2-D images were generated. CAD analysis was submitted and interpreted. COMPARISON: 03/18/2022, 03/04/2021 no 07/28/2018 BREAST PARENCHYMAL COMPOSITION:The breasts are heterogeneously dense, which may obscure small masses. FINDINGS: There is a small group of microcalcifications in the central subareolar right breast, only clearly identified on the CC view, which are more conspicuous/new as compared to prior exams. Stable left breast calcifications are present. No suspicious mass or architectural distortion are identified in either breast to suggest malignancy. IMPRESSION: Small group of microcalcifications in the central subareolar right breast, as detailed above, indeter minate. Spot magnification views are recommended for further evaluation. BI-RADS Category 0: Incomplete: Needs additional imaging evaluation. Reviewed, dictated and finalized at location . IMPRESSION: Small group of microcalcifications in the central subareolar right breast, as d etailed above, indeterminate. Spot magnification views are recommended for furt her evaluation. BI-RADS Category 0: Incomplete: Needs additional imaging evaluation.
== END 2023-05-18 15:56 | disposition home or self-care (01) ==
LOC: ANHIMG 16:13
PROVIDERS: PCP Physician Assistant; Visit Provider Obstetrics & Gynecology Gynecology
DX: Z12.31 Encounter for screening mammogram for malignant neoplasm of breast (principal); R92.8 Other abnormal and inconclusive findings on diagnostic imaging of breast
CPT/HCPCS: 77063; 77067

== ENCOUNTER 2023-06-14 12:32 | Outpatient (CLI) | payer OTHER, SELFPAY ==
--- NOTE | ~2023-06-14 | MMUS_ITS ---
EXAMINATION: MM diagnostic karlie RT w lillie, US breast RT complete HISTORY: Small group of microcalcifications reported in the central subareolar area of the right [address] reported on 05/18/2023 screening mammogram TECHNIQUE: Additional ML 3-D tomosynthesis images of were performed and synthetic 2-D images were gen erated. Magnification views of the right breast. CAD analysis was submitted and interpreted. High res olution complete right breast ultrasound examination including all 4 quadrants and subareolar area wa s performed. COMPARISON: 05/18/2023, 03/18/2022, 03/04/2021, 08/07/2018 bilateral screening mammogram examinations FINDINGS: MAMMOGRAPHIC FINDINGS: There is a new cluster of grouped very subtle granular appearing indeterminate microcalcifications in the lower mid right breast. ULTRASOUND: No suspicious mass or shadowing is detected. No cyst or other significant sonographic finding. IMPRESSION: 1. New indeterminate cluster of subtle grouped granular microcalcifications in the lower mid right br east 2. Stereotactic biopsy of the cluster of microcalcifications is recommended BI-RADS category 4, suspicious findings. Reviewed, dictated and finalized at location A. IMPRESSION: 1. New indeterminate cluster of subtle grouped granular microcalcifications in the lower mid right breast 2. Stereotactic biopsy of the cluster of microcalcifications is recommended BI-RADS category 4, suspicious findings.
== END 2023-06-14 12:33 | disposition home or self-care (01) ==
PROVIDERS: PCP Physician Assistant; Visit Provider Obstetrics & Gynecology Gynecology
DX: R92.0 Mammographic microcalcification found on diagnostic imaging of breast (principal); R92.8 Other abnormal and inconclusive findings on diagnostic imaging of breast
CPT/HCPCS: 76641; 77061; 77065; G0279

== ENCOUNTER 2023-08-30 08:26 | Outpatient (CLI) | payer OTHER, SELFPAY ==
--- NOTE | ~2023-08-30 | CT_ITS ---
CT Scan of the Chest without Contrast: Clinical Indication: Pulmonary nodule Technique: Contiguous sections were acquired throughout the chest without intravenous contrast. Dose reduction technique was used on this scan by utilizing automated exposure control and iterative recon struction technique. The dose-length product (DLP) was 100.33 mGy-cm. COMPARISON: 05/13/2023 Findings: There is no evidence of any significant mediastinal, hilar or axillary lymphadenopathy. The mediastin al soft tissues appear normal. There is no evidence of pleural or pericardial effusion. Stable 8 mm groundglass nodule present in the right lower lobe (axial image 69). Images through the upper abdomen reveal no abnormalities. Impression: Stable 8 mm groundglass right lower lobe pulmonary nodule. One-year follow-up recommended. Reviewed, dictated and finalized at location . DER BEAM Impression: Stable 8 mm groundglass right lower lobe pulmonary nodule. One-year follow-up r ecommended.
== END 2023-08-30 08:27 | disposition home or self-care (01) ==
PROVIDERS: PCP Physician Assistant; Visit Provider Internal Medicine Critical Care Medicine
DX: R91.1 Solitary pulmonary nodule (principal)
CPT/HCPCS: 71250

== ENCOUNTER 2023-11-29 00:33 | Day surgery (SDC) | payer OTHER, SELFPAY ==
[2023-11-21 14:26] VITALS: BMI 30.2
--- NOTE | 2023-11-25 10:32 | SUR.PREOP ---
Patient called regarding upcoming procedure. Spoke with Letha daughter, reviewed preop instructions, appointment times, and procedure prep. Prep instructions emailed to Letha per request.
[2023-11-29 08:54] VITALS: BP 103/60; PULSE 67; RESP 20; TEMP 35.9; O2SAT 99; BMI 28.5
[2023-11-29] MEDS: LACTATED RINGERS 1,000 ML 150 ML IV CONT (08:57)
--- NOTE | 2023-11-29 09:22 | PM.HPGS ---
History of Present Illness History of Present Illness Consent: Risks, benefits, and alternatives have been discussed and questions answered. Patient agrees to proceed with procedure. Chief complaint: neoplasm screening Narrative: Keely Novoa is a 57 year old female here for first screening colonoscopy Review of Systems Constitutional: Constitutional: Denies headache(s) and Denies weakness Eyes: Eyes: Denies blurry vision ENT: Reports Normal hearing present, Denies headache(s) and Denies neck pain Cardiovascular: Cardiovascular: Denies chest pain and Denies dyspnea Respiratory: Respiratory: Denies dyspnea Gastrointestinal: Gastrointestinal: Reports no additional gastrointestinal complaints Genitourinary: Genitourinary: Denies dysuria Musculoskeletal: Musculoskeletal: Denies neck pain Integumentary/Breasts: Skin/Breast: Denies dry skin Neurologic: Reports Normal hearing present, Denies headache(s) and Denies weakness Psychiatric: Psychiatric: Denies anxiety Endocrine: Endocrine: Denies change in body appearance Hematologic/Lymphatic: Hematologic/Lymphatic: Denies easy bleeding Allergic/Immunologic: Allergic/Immunologic: Denies urticaria PMFSH Past Medical History Medical History (Updated 09/08/23 @ 15:28 by Reginaldo Caro MD) Constipation Diabetes Functional dyspepsia GERD (gastroesophageal reflux disease) History of hyperlipidemia Irritable bowel syndrome (normal spontaneous vaginal delivery) x2 Obesity BMI of 31 Opacity of lung on imaging study Ulcer Surgical History Surgical History History of dilation and curettage Social History Social History Smoking status: Never smoker Alcohol intake: never Substance use: never Substance use type: does not use Living arrangements: with family Additional living arrangements comments: HUSB, SON & HIS GIRLFRIEND Occupation/Education: unemployed Gender identity (if verbalized by the patient): Female Sexual Orientation (if Verbalized by the Patient): Straight or Heterosexual Spiritual care concerns: No Meds Home Medications and Allergies Home Medications Medication Instructions Recorded Confirmed Type atorvastatin 40 mg tablet 40 mg PO DAILY 04/26/23 11/29/23 History calcium 600 mg capsule 600 mg PO DAILY 04/26/23 11/29/23 History cyanocobalamin (vitamin B-12) 1,000 mcg PO DAILY 04/26/23 11/29/23 History 1,000 mcg capsule magnesium 500 mg tablet 15 mg PO DAILY 04/26/23 11/29/23 History omega 6-bzy-ifo-fish oil 900 1 cap PO DAILY 04/26/23 11/29/23 History mg-1,400 mg capsule,delayed release vitamin A 2,400 mcg capsule 2,400 mcg PO DAILY 04/26/23 11/29/23 History amitriptyline 25 mg tablet 25 mg PO QHS #30 tabs 09/08/23 11/29/23 Rx Allergies Allergy/AdvReac Type Severity Reaction Status Date / Time ethinyl estradiol Allergy Mild Sneezing Verified 11/29/23 08:51 [From Seasonale (91)] levonorgestrel Allergy Mild Sneezing Verified 11/29/23 08:51 [From Seasonale (91)] Vital Signs Vital Signs - 24 hr 11/29/23 08:54 Temperature 96.7 F L Pulse Rate 67 Respiratory Rate 20 Blood Pressure 103/60 Pulse Oximetry 99 Oxygen Delivery Room Air Exam Const: General: comfortable and no acute distress HENMT: Face/Nose/Sinus: Normal nares present Eyes: General: appearance normal, both eyes and all related structures Neck: Neck: no JVD Resp: Auscultation: clear to auscultation bilaterally Cardio: Rate: regular rate Rhythm: regular rhythm GI: Inspection: non-distended GI Palp: Yes Soft to palpation Skin: General skin exam: normal color Neuro: General: gait normal Speech: normal speech Extrem: General: normal to inspection Psych: Mental Status: mental status grossly normal Assessment and Plan Assessment and plan (1) Colon cancer screening:
--- NOTE | 2023-11-29 09:22 | WPDANESEPPF ---
Anes - Initial Pre Proc Eval Procedure: Operation Date: 11/29/23 10:00 Proposed Procedures p Screening Colonoscopy - Reginaldo Caro MD Date/Time: 11/29/23 09:22 Surgeon: Reginaldo Caro MD Pre Op Diagnosis: neoplasm screening Patient Data Age: 57 Gender: F Height: 1.63 m Weight: 75.6 kg Last Vital Signs Temp 96.7 F L 11/29/23 08:54 Pulse 67 11/29/23 08:54 Resp 20 11/29/23 08:54 BP 103/60 11/29/23 08:54 Pulse Ox 99 11/29/23 08:54 O2 Del Method Room Air 11/29/23 08:54 Allergies Allergy/AdvReac Type Severity Reaction Status Date / Time ethinyl estradiol Allergy Mild Sneezing Verified 11/29/23 08:51 [From Seasonale (91)] levonorgestrel Allergy Mild Sneezing Verified 11/29/23 08:51 [From Seasonale (91)] Home Medications Medication Instructions Recorded Confirmed Type atorvastatin 40 mg tablet 40 mg PO DAILY 04/26/23 11/29/23 History calcium 600 mg capsule 600 mg PO DAILY 04/26/23 11/29/23 History cyanocobalamin (vitamin B-12) 1,000 mcg PO DAILY 04/26/23 11/29/23 History 1,000 mcg capsule magnesium 500 mg tablet 15 mg PO DAILY 04/26/23 11/29/23 History omega 4-cvm-iby-fish oil 900 1 cap PO DAILY 04/26/23 11/29/23 History mg-1,400 mg capsule,delayed release vitamin A 2,400 mcg capsule 2,400 mcg PO DAILY 04/26/23 11/29/23 History amitriptyline 25 mg tablet 25 mg PO QHS #30 tabs 09/08/23 11/29/23 Rx Patient hx anesthesia problems: none Family hx anesthesia problems: none Results Review: All pre-operative results and documents have been reviewed as part of the pre-operative evaluation. [facility] Past Medical History Medical History (Updated 09/08/23 @ 15:28 by Reginaldo Caro MD) Constipation Diabetes Functional dyspepsia GERD (gastroesophageal reflux disease) History of hyperlipidemia Irritable bowel syndrome (normal spontaneous vaginal delivery) x2 Obesity BMI of 31 Opacity of lung on imaging study Ulcer Surgical History Surgical History History of dilation and curettage Social History Social History Smoking status: Never smoker Alcohol intake: never Substance use: never Substance use type: does not use Living arrangements: with family Additional living arrangements comments: HUSB, SON & HIS GIRLFRIEND Occupation/Education: unemployed Gender identity (if verbalized by the patient): Female Sexual Orientation (if Verbalized by the Patient): Straight or Heterosexual Spiritual care concerns: No Anes - Eval Final PreProcedure Day of Procedure 11/29/23 09:22 Patient weight: normal Heart: regular rate and rhythm Lungs: clear to auscultation Airway: Mallampati scale class II Neurological: alert and oriented Last oral intake: >/= 8 hours ASA classification: II Emergent: no Anesthetic plan: proceed Anesthesia type and monitoring: general GIVS and standard monitoring Results Review: All pre-operative results and documents have been reviewed as part of the pre-operative evaluation. Informed Consent: The patient's anesthetic plan and its attendant risks and benefits were discussed with the patient/family/POA. Questions were solicited and answers provided to the satisfaction of the patient/family/POA.
[2023-11-29 09:40] VITALS: BP 100/52; PULSE 64; RESP 20; O2SAT 99
[2023-11-29 09:50] VITALS: BP 102/65; PULSE 57; RESP 18; O2SAT 100
[2023-11-29 10:00] VITALS: BP 97/75; PULSE 60; RESP 17; O2SAT 100
== END 2023-11-29 10:05 | disposition home or self-care (01) ==
PROVIDERS: PCP Physician Assistant; Visit Provider Internal Medicine Gastroenterology
PROC: 0DJD8ZZ Inspection of Lower Intestinal Tract, Via Natural or Artificial Opening Endoscopic (ICD-10-PCS; CPT 45378; principal; 2023-11-29 10:00)
DX: Z12.31 Encounter for screening mammogram for malignant neoplasm of breast (principal); K64.8 Other hemorrhoids; E78.5 Hyperlipidemia, unspecified; K58.9 Irritable bowel syndrome, unspecified; E11.9 Type 2 diabetes mellitus without complications; K21.9 Gastro-esophageal reflux disease without esophagitis; K30 Functional dyspepsia
CPT/HCPCS: 45378; J2704; J7120